=== PATIENT | female | born 1965 | race Two or more races ===

== ENCOUNTER 2023-03-05 00:16 | Inpatient (IN) | payer BC, OTHER ==
[~2023-03-05] VITALS: Ht 175.3 cm; Wt 100.0 kg
[2023-03-05 00:47] LABS: Basophils # (auto) 0 10 ^3/uL (0-0.2); Basophils % (auto) 0.5 % (0.0-2.0); Eosinophils # (auto) 0.1 10 ^3/uL (0-0.8); Eosinophils % (auto) 1.4 % (0.0-7.0); Hemoglobin 12.7 g/dL (12.2-16.2); Lymphocytes # (auto) 1.8 10 ^3/uL (0.4-5.4); Lymphocytes % (auto) 23.8 % (10.0-50.0); Mean Corpuscular Hgb Conc. 33.4 g/dL (32.0-36.0); Mean Corpuscular Volume 98.8 fL (80.0-100.0); Monocytes # (auto) 0.5 10 ^3/uL (0-1.3); Neutrophils # (auto) 5.3 10 ^3/uL (1.6-8.6); Neutrophils % (auto) 68.3 % (37.0-80.0); Red Blood Cells 3.84 10^6/uL (4.0-5.20); Red Cell Distribution Width 12.4 % (11.8-14.3); White Blood Cell 7.7 10^3/uL (4.4-10.8)
[2023-03-05 01:03] LABS: INR 0.97 (0.9-1.15); Partial Thromboplastin Time 25.6 SEC (24.5-34.5); Prothrombin Time 10.2 sec (9.3-11.8)
[2023-03-05 01:12] LABS: Alanine Aminotransferase 36 U/L (7-40); Albumin 4.6 g/dL (3.2-4.8); Alkaline Phosphatase 86 U/L (46-116); Anion Gap 11 (5-15); Aspartate Aminotransferase 31 U/L (13-40); BUN/Creatinine Ratio 17.1 (10.0-20.0); Bilirubin, Total 0.4 mg/dL (0.2-1.0); Blood Urea Nitrogen 14 mg/dL (9-23); Calcium 9.3 mg/dL (8.7-10.4); Carbon Dioxide 25 mmol/L (20-30); Chloride 101 mmol/L (98-107); Glucose 107 mg/dL (74-106); Potassium 3.7 mmol/L (3.5-5.1); Sodium 137 mmol/L (136-145); Total Protein 6.8 g/dL (5.7-8.2)
[2023-03-05] MEDS ORDERED: MORPHINE SULFATE 4 MG/ML SYR/VIAL IV ONE ×2 (01:30→02:45)
[2023-03-05] MEDS ORDERED: ONDANSETRON HCL 4 MG/2 ML VIAL IV ONE ×2 (01:30→02:45)
[2023-03-05 02:00] VITALS: PULSE 84; RESP 18; O2SAT 96
[2023-03-05] MEDS ORDERED: PROPOFOL 10 MG/ML 20 ML IV ONE (02:45)
[2023-03-05] MEDS ORDERED: MORPHINE SULFATE 4 MG/ML SYR/VIAL ONE (06:04)
[2023-03-05] MEDS ORDERED: ONDANSETRON HCL 4 MG/2 ML VIAL ONE (06:05)
[2023-03-05] MEDS ORDERED: DOCUSATE SOD 100 MG CAP PO PRN (07:15)
[2023-03-05] MEDS ORDERED: ACETAMINOPHEN 325 MG TAB PO PRN (07:15)
[2023-03-05] MEDS ORDERED: MORPHINE SULFATE INJ 2 MG/ml SYRG IV PRN (07:15)
[2023-03-05] MEDS ORDERED: DEXTROSE (50%) 50ML SYRG IV PRN (07:15)
[2023-03-05] MEDS ORDERED: NITROGLYCERIN 0.4 MG SL TAB SL PRN (07:15)
[2023-03-05] MEDS ORDERED: SODIUM CHLORIDE 0.9% 1,000 ML IV SCH (07:15)
[2023-03-05] MEDS ORDERED: LORazepam 2MG/ML-1ML VIAL IV ONE ×2 (07:15)
[2023-03-05 07:46] LABS: Basophils # (auto) 0 10 ^3/uL (0-0.2); Basophils % (auto) 0.3 % (0.0-2.0); Eosinophils # (auto) 0.1 10 ^3/uL (0-0.8); Eosinophils % (auto) 1.4 % (0.0-7.0); Hematocrit 36.3 % (36.0-46.0); Hemoglobin 12.1 g/dL (12.2-16.2); Lymphocytes # (auto) 2.1 10 ^3/uL (0.4-5.4); Lymphocytes % (auto) 25.2 % (10.0-50.0); Mean Corpuscular Hgb Conc. 33.4 g/dL (32.0-36.0); Mean Corpuscular Volume 98.9 fL (80.0-100.0); Monocytes # (auto) 0.5 10 ^3/uL (0-1.3); Monocytes % (auto) 6.1 % (0.0-12.0); Neutrophils # (auto) 5.5 10 ^3/uL (1.6-8.6); Red Blood Cells 3.67 10^6/uL (4.0-5.20); White Blood Cell 8.3 10^3/uL (4.4-10.8)
[2023-03-05] MEDS: MORPHINE SULFATE INJ 2 MG/ml SYRG IV PRN ×4 (07:53→21:12)
[2023-03-05] MEDS: ONDANSETRON HCL 4 MG/2 ML VIAL IV PRN ×4 (07:54→21:12)
[2023-03-05 08:07] LABS: Alanine Aminotransferase 37 U/L (7-40); Albumin 4.3 g/dL (3.2-4.8); Alkaline Phosphatase 83 U/L (46-116); Anion Gap 8 (5-15); Aspartate Aminotransferase 36 U/L (13-40); BUN/Creatinine Ratio 17.5 (10.0-20.0); Bilirubin, Total 0.7 mg/dL (0.2-1.0); Blood Urea Nitrogen 14 mg/dL (9-23); Carbon Dioxide 25 mmol/L (20-30); Chloride 103 mmol/L (98-107); Glucose 98 mg/dL (74-106); Potassium 4.2 mmol/L (3.5-5.1); Sodium 136 mmol/L (136-145); Total Protein 6.5 g/dL (5.7-8.2)
[2023-03-05] MEDS: InsuLIN REG 1unit/0.01ml Soln (100units/ml) SC SCH ×2 (12:00→17:15)
[2023-03-05] MEDS: ENOXAPARIN SOD 40 MG/0.4 ML SYRINGE SC SCH (12:14)
[2023-03-05] MEDS: ACCU-CHEK COMFORT CURVE STRIP VI SCH ×2 (12:15→17:15)
[2023-03-05] MEDS: HYDROcodone-ACET 5/325MG TAB PO PRN ×3 (13:42→22:51)
[2023-03-05] MEDS: LORazepam 0.5 MG TAB PO PRN ×2 (17:06→22:51)
[2023-03-05 19:30] VITALS: PULSE 99; RESP 24; O2SAT 94
[2023-03-05] MEDS: IBUPROFEN 800 MG TAB PO SCH (20:48)
[2023-03-05] MEDS: FUROSEMIDE 20 MG/2 ML VIAL IV SCH (21:11)
[2023-03-05 21:48] LABS: Urine Bacteria NONE SEEN /hpf (None Seen); Urine Blood 1+ /uL (Negative); Urine Clarity Clear (Clear); Urine Color Colorless (Yellow); Urine Protein, UAD Negative (Negative); Urine Specific Gravity 1.009 (1.001-1.035); Urine Urobilinogen Normal (Negative); Urine WBC 4 /hpf (0 - 5); Urine pH 6.5 (5.0-8.0)
[2023-03-06] VITALS (9 sets, daily range): BP systolic 118–149; BP diastolic 69–95; PULSE 95–109; RESP 16–20; TEMP 98–98.9; O2SAT 92–99
[2023-03-06] MEDS: ONDANSETRON HCL 4 MG/2 ML VIAL IV PRN ×2 (02:55→09:26)
[2023-03-06] MEDS: MORPHINE SULFATE INJ 2 MG/ml SYRG IV PRN ×2 (02:56→09:27)
[2023-03-06] MEDS: LORazepam 0.5 MG TAB PO PRN ×2 (05:33→20:16)
[2023-03-06 05:49] LABS: Basophils # (auto) 0 10 ^3/uL (0-0.2); Basophils % (auto) 0.4 % (0.0-2.0); Eosinophils # (auto) 0.1 10 ^3/uL (0-0.8); Eosinophils % (auto) 1.3 % (0.0-7.0); Hematocrit 35.4 % (36.0-46.0); Hemoglobin 12.1 g/dL (12.2-16.2); Lymphocytes # (auto) 1.5 10 ^3/uL (0.4-5.4); Lymphocytes % (auto) 25.4 % (10.0-50.0); Mean Corpuscular Hemoglobin 33.5 pg (28.0-32.0); Mean Corpuscular Hgb Conc. 34.1 g/dL (32.0-36.0); Mean Corpuscular Volume 98.1 fL (80.0-100.0); Monocytes # (auto) 0.5 10 ^3/uL (0-1.3); Monocytes % (auto) 7.5 % (0.0-12.0); Neutrophils % (auto) 65.4 % (37.0-80.0); Nucleated Red Blood Cells % 0.1 %; Red Blood Cells 3.61 10^6/uL (4.0-5.20); Red Cell Distribution Width 12.1 % (11.8-14.3); White Blood Cell 6.1 10^3/uL (4.4-10.8)
[2023-03-06] MEDS: FUROSEMIDE 20 MG/2 ML VIAL IV SCH ×2 (05:55→18:07)
[2023-03-06] MEDS: ACCU-CHEK COMFORT CURVE STRIP VI SCH ×4 (05:56→18:08)
[2023-03-06] MEDS: InsuLIN REG 1unit/0.01ml Soln (100units/ml) SC SCH ×4 (05:56→18:18)
[2023-03-06 05:59] LABS: Alanine Aminotransferase 30 U/L (7-40); Alkaline Phosphatase 87 U/L (46-116); Anion Gap 8 (5-15); BUN/Creatinine Ratio 9.6 (10.0-20.0); Blood Urea Nitrogen 7 mg/dL (9-23); Calcium 9.7 mg/dL (8.5-10.1); Carbon Dioxide 27 mmol/L (20-30); Chloride 102 mmol/L (98-107); Glucose 105 mg/dL (74-106); Potassium 3.8 mmol/L (3.5-5.1); Sodium 137 mmol/L (136-145)
[2023-03-06 06:00] LABS: Albumin 4.5 g/dL (3.2-4.8); Aspartate Aminotransferase 24 U/L (13-40); Total Protein 6.7 g/dL (5.7-8.2)
[2023-03-06] MEDS: IBUPROFEN 800 MG TAB PO SCH ×3 (08:00→18:00)
[2023-03-06] MEDS: ENOXAPARIN SOD 40 MG/0.4 ML SYRINGE SC SCH (08:25)
[2023-03-06] MEDS ORDERED: LIDOCAINE 1% HCL (LOCAL ANESTH.) INJ 20ML MDV ONE (10:28)
[2023-03-06] MEDS ORDERED: MORPHINE SULFATE INJ 2 MG/ml SYRG IV ONE (10:30)
[2023-03-06] MEDS ORDERED: BUPIVACAINE 0.5% P/F INJ 10 ML VIAL ONE ×2 (10:32→10:54)
[2023-03-06] MEDS ORDERED: ONDANSETRON HCL 4 MG/2 ML VIAL IV PRN ×2 (10:45→13:00)
[2023-03-06] MEDS ORDERED: HYDROmorphone HCL 2 MG/ML VL/or syr IV PRN (10:45)
[2023-03-06] MEDS ORDERED: MEPERIDINE HCL (25 MG/ML) 1ML VIAL IV PRN ×2 (10:45→13:00)
[2023-03-06] MEDS ORDERED: PROPOFOL 10 MG/ML 20 ML IV ONE (10:47)
[2023-03-06] MEDS ORDERED: fentaNYL CITRATE 100 MCG/2 ML VL ONE ×2 (10:47→11:30)
[2023-03-06] MEDS ORDERED: MEPERIDINE HCL (25 MG/ML) 1ML VIAL ONE ×2 (11:10→12:01)
[2023-03-06] MEDS ORDERED: ONDANSETRON HCL 4 MG/2 ML VIAL ONE (11:11)
[2023-03-06] MEDS ORDERED: DexAMETHasone SOD PHOS 10MG/1ML VIAL INJ ONE (11:11)
[2023-03-06] MEDS ORDERED: SODIUM CHLORIDE LOCK 10 ML ONE (12:01)
[2023-03-06] MEDS: HYDROmorphone HCL 2 MG/ML VL/or syr IV PRN ×4 (12:59→13:29)
[2023-03-06] MEDS ORDERED: LABETALOL HCL 5 MG/ML 4ML SYRINGE IV PRN (13:00)
[2023-03-06] MEDS: ceFAZolin 1GM/50ML 50 ML IV SCH ×2 (14:50→21:20)
[2023-03-06] MEDS: HYDROcodone-ACET 5/325MG TAB PO PRN ×2 (15:01→20:16)
[2023-03-06] MEDS: MORPHINE SULFATE 4 MG/ML SYR/VIAL IV PRN (18:08)
[2023-03-06] MEDS: ALPRAZolam 0.25 MG TAB PO SCH (22:35)
[2023-03-07] VITALS (7 sets, daily range): BP systolic 115–161; BP diastolic 62–88; PULSE 86–97; RESP 16–18; TEMP 97.4–98.4; O2SAT 91–96
[2023-03-07] MEDS: ACCU-CHEK COMFORT CURVE STRIP VI SCH ×5 (00:01→23:45)
[2023-03-07] MEDS: HYDROcodone-ACET 5/325MG TAB PO PRN ×5 (00:01→21:03)
[2023-03-07] MEDS: InsuLIN REG 1unit/0.01ml Soln (100units/ml) SC SCH ×4 (00:02→18:30)
[2023-03-07] MEDS: LORazepam 0.5 MG TAB PO PRN ×3 (03:07→16:43)
[2023-03-07] MEDS: ceFAZolin 1GM/50ML 50 ML IV SCH (05:53)
[2023-03-07] MEDS: FUROSEMIDE 20 MG/2 ML VIAL IV SCH ×2 (05:53→18:19)
[2023-03-07] MEDS: ENOXAPARIN SOD 40 MG/0.4 ML SYRINGE SC SCH (09:41)
[2023-03-07] MEDS: CITALOPRAM HYDROBR 20 MG TAB PO SCH (09:41)
[2023-03-07] MEDS: IBUPROFEN 800 MG TAB PO SCH ×2 (12:00→18:19)
[2023-03-07] MEDS: MORPHINE SULFATE 4 MG/ML SYR/VIAL IV PRN ×3 (13:34→22:57)
[2023-03-07] MEDS: ALPRAZolam 0.25 MG TAB PO SCH (21:03)
[2023-03-08] VITALS (8 sets, daily range): BP systolic 101–134; BP diastolic 59–78; PULSE 84–118; RESP 18; TEMP 97.5–98.3; O2SAT 92–97
[2023-03-08] MEDS: InsuLIN REG 1unit/0.01ml Soln (100units/ml) SC SCH ×4 (06:00→17:57)
[2023-03-08] MEDS: HYDROcodone-ACET 5/325MG TAB PO PRN ×3 (06:06→17:43)
[2023-03-08] MEDS: FUROSEMIDE 20 MG/2 ML VIAL IV SCH ×2 (06:07→17:44)
[2023-03-08] MEDS: ACCU-CHEK COMFORT CURVE STRIP VI SCH ×3 (06:13→17:44)
[2023-03-08] MEDS: IBUPROFEN 800 MG TAB PO SCH ×4 (08:00→17:44)
[2023-03-08] MEDS: ENOXAPARIN SOD 40 MG/0.4 ML SYRINGE SC SCH (10:11)
[2023-03-08] MEDS: CITALOPRAM HYDROBR 20 MG TAB PO SCH (10:11)
[2023-03-08] MEDS: MORPHINE SULFATE 4 MG/ML SYR/VIAL IV PRN ×2 (13:00→21:57)
[2023-03-08] MEDS: LORazepam 0.5 MG TAB PO PRN (13:01)
[2023-03-08] MEDS: ALPRAZolam 0.25 MG TAB PO SCH (21:56)
[2023-03-09 05:00] VITALS: BP 119/60; PULSE 92; RESP 18; TEMP 97.5; O2SAT 93
[2023-03-09] MEDS: InsuLIN REG 1unit/0.01ml Soln (100units/ml) SC SCH ×3 (06:00→12:00)
[2023-03-09] MEDS: MORPHINE SULFATE 4 MG/ML SYR/VIAL IV PRN ×2 (06:25→10:52)
[2023-03-09] MEDS: FUROSEMIDE 20 MG/2 ML VIAL IV SCH (06:25)
[2023-03-09] MEDS: ACCU-CHEK COMFORT CURVE STRIP VI SCH ×3 (06:33→12:00)
[2023-03-09 07:30] VITALS: PULSE 71; RESP 18; O2SAT 94
[2023-03-09 08:30] VITALS: PULSE 77
[2023-03-09 09:00] VITALS: BP 110/62; PULSE 71; RESP 20; TEMP 98.5; O2SAT 92
[2023-03-09] MEDS ORDERED: HYDR-4902 PO (09:42)
[2023-03-09] MEDS ORDERED: IBUP-1455 PO (09:42)
[2023-03-09] MEDS: CITALOPRAM HYDROBR 20 MG TAB PO SCH (09:48)
[2023-03-09] MEDS: IBUPROFEN 800 MG TAB PO SCH ×2 (09:49→14:57)
[2023-03-09] MEDS: ENOXAPARIN SOD 40 MG/0.4 ML SYRINGE SC SCH (09:50)
[2023-03-09] MEDS: LORazepam 0.5 MG TAB PO PRN (09:58)
[2023-03-09 13:00] VITALS: BP 148/86; PULSE 96; RESP 20; TEMP 97.3; O2SAT 95
[2023-03-09 15:01] VITALS: BP 119/60; PULSE 96; RESP 19; TEMP 36.3; O2SAT 95
[2023-03-09] MEDS: HYDROcodone-ACET 5/325MG TAB PO PRN (15:32)
== END 2023-03-09 16:15 | disposition home or self-care (01) | DRG 492 ==
LOC: EDBD 00:16 → ER 00:16 → TELE 07:18 → TELE-WESTW 23:33
PROVIDERS: ADMIT Nurse Practitioner Family; ATTEND Internal Medicine Geriatric Medicine
PROC: 0QSJ04Z Reposition Right Fibula with Internal Fixation Device, Open Approach (ICD-10-PCS; 2023-03-06)
PROC: 0SSF04Z Reposition Right Ankle Joint with Internal Fixation Device, Open Approach (ICD-10-PCS; 2023-03-06)
PROC: 0QSG04Z Reposition Right Tibia with Internal Fixation Device, Open Approach (ICD-10-PCS; principal; 2023-03-06 11:03)
DX: S82.851A Displaced trimalleolar fracture of right lower leg, initial encounter for closed fracture (principal); J96.90 Respiratory failure, unspecified, unspecified whether with hypoxia or hypercapnia; W01.0XXA Fall on same level from slipping, tripping and stumbling without subsequent striking against object, initial encounter; E11.9 Type 2 diabetes mellitus without complications; F41.9 Anxiety disorder, unspecified; E78.00 Pure hypercholesterolemia, unspecified; F32.A Depression, unspecified; I50.9 Heart failure, unspecified; I11.0 Hypertensive heart disease with heart failure; Z79.899 Other long term (current) drug therapy; Z80.0 Family history of malignant neoplasm of digestive organs; Y93.89 Activity, other specified; Y92.89 Other specified places as the place of occurrence of the external cause; Y99.8 Other external cause status
CPT/HCPCS: 36415; 71045; 73600; 76000; 80053; 81001; 82962; 83036; 85025; 85610; 85730; 86850; 86900; 86901; 87081; 93306; 97110; 97116; 97163; 97530; G0378; J0690; J1100; J1815; J2001; J2405; J2704; J3490

== ENCOUNTER 2023-09-08 09:48 | Inpatient (IN) | payer BC ==
[~2023-09-08] VITALS: Ht 172.7 cm; Wt 97.0 kg
[~2023-09-08 09:48] MED LIST: HYDR-4902 PO; IBUP-1455 PO
[2023-09-08] MEDS: PIPERACILLIN-TAZOB 3.375GM 100 ML IV ONE (11:45)
[2023-09-08 11:59] LABS: Basophils # (auto) 0 10 ^3/uL (0-0.2); Basophils % (auto) 0.7 % (0.0-2.0); Eosinophils # (auto) 0.2 10 ^3/uL (0-0.8); Eosinophils % (auto) 2.5 % (0.0-7.0); Hematocrit 34.7 % (36.0-46.0); Hemoglobin 11.7 g/dL (12.2-16.2); Lymphocytes # (auto) 2.1 10 ^3/uL (0.4-5.4); Lymphocytes % (auto) 33.5 % (10.0-50.0); Mean Corpuscular Hemoglobin 31.9 pg (28.0-32.0); Mean Corpuscular Hgb Conc. 33.7 g/dL (32.0-36.0); Mean Corpuscular Volume 94.5 fL (80.0-100.0); Monocytes # (auto) 0.4 10 ^3/uL (0-1.3); Monocytes % (auto) 5.9 % (0.0-12.0); Neutrophils # (auto) 3.6 10 ^3/uL (1.6-8.6); Neutrophils % (auto) 57.4 % (37.0-80.0); Red Blood Cells 3.68 10^6/uL (4.0-5.20); Red Cell Distribution Width 13.7 % (11.8-14.3); White Blood Cell 6.2 10^3/uL (4.4-10.8)
[2023-09-08 12:18] LABS: Alanine Aminotransferase 16 U/L (7-40); Albumin 4.6 g/dL (3.2-4.8); Alkaline Phosphatase 125 U/L (46-116); Anion Gap 2 (5-15); Aspartate Aminotransferase 10 U/L (13-40); BUN/Creatinine Ratio 26.7 (10.0-20.0); Blood Urea Nitrogen 20 mg/dL (9-23); Calcium 9.9 mg/dL (8.5-10.1); Carbon Dioxide 29 mmol/L (20-30); Chloride 109 mmol/L (98-107); Glucose 95 mg/dL (74-106); Potassium 4.1 mmol/L (3.5-5.1); Sodium 140 mmol/L (136-145)
[2023-09-08 12:19] LABS: Bilirubin, Total 0.5 mg/dL (0.2-1.0); Total Protein 7.4 g/dL (5.7-8.2)
[2023-09-08] MEDS ORDERED: VANCOMYCIN PER PHARMACY 0 MG IV SCH (12:30)
[2023-09-08] MEDS ORDERED: DOCUSATE SOD 100 MG CAP PO PRN (12:30)
[2023-09-08] MEDS ORDERED: ONDANSETRON HCL 4 MG/2 ML VIAL IV PRN (12:30)
[2023-09-08 12:32] LABS: Erythrocyte Sedimentation Rate 43 mm/hr (0-20)
[2023-09-08] MEDS: ENOXAPARIN SOD 40 MG/0.4 ML SYRINGE SC SCH (13:54)
[2023-09-08] MEDS: VANCOMYCIN 1GM/200ML 200 ML IV ONE (13:55)
[2023-09-08 15:00] VITALS: BP 178/116; PULSE 94; RESP 16; TEMP 98; O2SAT 99
[2023-09-08 16:00] VITALS: BP 189/97; PULSE 94; RESP 16; TEMP 98; O2SAT 99
[2023-09-08] MEDS ORDERED: ESCI20TA PO (16:31)
[2023-09-08 16:34] LABS: Urine Bacteria FEW /hpf (None Seen); Urine Blood Negative /uL (Negative); Urine Clarity Clear (Clear); Urine Color Light-Yellow (Yellow); Urine Hyaline Cast FEW /lpf (0 - 2); Urine Protein, UAD Negative (Negative); Urine Specific Gravity 1.023 (1.001-1.035); Urine Urobilinogen Normal (Negative); Urine WBC 2 /hpf (0 - 5); Urine pH 5.5 (5.0-9.0)
[2023-09-08] MEDS: SODIUM CHLORIDE 0.9% 1,000 ML IV SCH (16:48)
[2023-09-08 17:00] VITALS: BP 175/102; PULSE 90; RESP 18; TEMP 98; O2SAT 99
[2023-09-08] MEDS ORDERED: ATOR40TA52 PO (17:01)
[2023-09-08] MEDS ORDERED: LISI20TA56 PO (17:01)
[2023-09-08] MEDS ORDERED: ESCI1TAB37 PO (17:01)
[2023-09-08] MEDS ORDERED: METF-370 PO (17:01)
[2023-09-08] MEDS ORDERED: CYCL-839 PO (17:01)
[2023-09-08] MEDS ORDERED: FURO1TAB31 PO (17:01)
[2023-09-08] MEDS ORDERED: POTA-36 PO (17:01)
[2023-09-08] MEDS: PIPERACILLIN-TAZOB 3.375GM 100 ML IV SCH (17:42)
[2023-09-08] MEDS: MORPHINE SULFATE INJ 2 MG/ml SYRG IV PRN (17:43)
[2023-09-08] MEDS: LISINOPRIL 20 MG TAB PO ONE (18:05)
[2023-09-08 19:11] LABS: Hepatitis C Antibody Negative (Negative)
[2023-09-08 20:00] VITALS: PULSE 88; RESP 20; O2SAT 97
[2023-09-08 21:00] VITALS: BP 165/93; PULSE 88; RESP 20; TEMP 97.8; O2SAT 97
[2023-09-09] MEDS: VANCOMYCIN 1GM/200ML 200 ML IV SCH (02:02)
[2023-09-09 05:00] VITALS: BP 141/85; PULSE 78; TEMP 98.1; O2SAT 95
[2023-09-09 06:49] LABS: Alanine Aminotransferase 12 U/L (7-40); Albumin 3.8 g/dL (3.2-4.8); Alkaline Phosphatase 99 U/L (46-116); Anion Gap 9 (5-15); Aspartate Aminotransferase 10 U/L (13-40); BUN/Creatinine Ratio 20.3 (10.0-20.0); Bilirubin, Total 0.7 mg/dL (0.2-1.0); Blood Urea Nitrogen 12 mg/dL (9-23); Calcium 9.7 mg/dL (8.7-10.4); Carbon Dioxide 24 mmol/L (20-30); Chloride 108 mmol/L (98-107); Glucose 100 mg/dL (74-106); Sodium 141 mmol/L (136-145); Total Protein 6.3 g/dL (5.7-8.2)
[2023-09-09 08:07] LABS: Basophils # (auto) 0 10 ^3/uL (0-0.2); Basophils % (auto) 0.7 % (0.0-2.0); Eosinophils # (auto) 0.2 10 ^3/uL (0-0.8); Eosinophils % (auto) 3.3 % (0.0-7.0); Hematocrit 31.3 % (36.0-46.0); Hemoglobin 10.5 g/dL (12.2-16.2); Lymphocytes # (auto) 1.4 10 ^3/uL (0.4-5.4); Lymphocytes % (auto) 27.2 % (10.0-50.0); Mean Corpuscular Hemoglobin 31.7 pg (28.0-32.0); Mean Corpuscular Hgb Conc. 33.7 g/dL (32.0-36.0); Mean Corpuscular Volume 94.2 fL (80.0-100.0); Monocytes # (auto) 0.4 10 ^3/uL (0-1.3); Monocytes % (auto) 6.9 % (0.0-12.0); Neutrophils # (auto) 3.2 10 ^3/uL (1.6-8.6); Neutrophils % (auto) 61.9 % (37.0-80.0); Red Blood Cells 3.33 10^6/uL (4.0-5.20); Red Cell Distribution Width 13.7 % (11.8-14.3); White Blood Cell 5.1 10^3/uL (4.4-10.8)
[2023-09-09 08:17] VITALS: BP 136/88; PULSE 83; RESP 19; TEMP 98; O2SAT 96
[2023-09-09] MEDS: LISINOPRIL 20 MG TAB PO SCH (08:47)
[2023-09-09 11:50] VITALS: BP 143/86; PULSE 78; RESP 19; TEMP 97.6; O2SAT 95
[2023-09-09] MEDS: NICOTINE 14 MG/24HR TOPICAL PATCH TD SCH (16:44)
[2023-09-09 17:03] VITALS: BP 153/93; PULSE 77; RESP 19; TEMP 97.7; O2SAT 97
[2023-09-09 20:00] VITALS: RESP 20; O2SAT 97
[2023-09-09 21:00] VITALS: BP 144/89; PULSE 83; RESP 20; TEMP 97.7; O2SAT 96
[2023-09-10 00:51] VITALS: BP 144/96; PULSE 98; RESP 20; TEMP 98; O2SAT 95
[2023-09-10 05:00] VITALS: BP 124/71; PULSE 75; RESP 20; TEMP 98; O2SAT 98
[2023-09-10 06:08] LABS: Basophils # (auto) 0 10 ^3/uL (0-0.2); Basophils % (auto) 0.6 % (0.0-2.0); Eosinophils # (auto) 0.2 10 ^3/uL (0-0.8); Eosinophils % (auto) 4.5 % (0.0-7.0); Hematocrit 32.3 % (36.0-46.0); Lymphocytes # (auto) 1.8 10 ^3/uL (0.4-5.4); Lymphocytes % (auto) 34.3 % (10.0-50.0); Mean Corpuscular Hemoglobin 32.2 pg (28.0-32.0); Mean Corpuscular Volume 94.7 fL (80.0-100.0); Monocytes # (auto) 0.4 10 ^3/uL (0-1.3); Monocytes % (auto) 7.6 % (0.0-12.0); Neutrophils # (auto) 2.7 10 ^3/uL (1.6-8.6); Red Blood Cells 3.41 10^6/uL (4.0-5.20); Red Cell Distribution Width 13.5 % (11.8-14.3); White Blood Cell 5.1 10^3/uL (4.4-10.8)
[2023-09-10 06:13] LABS: Potassium 4.4 mmol/L (3.5-5.1)
[2023-09-10 06:14] LABS: Calcium 9.6 mg/dL (8.5-10.1)
[2023-09-10 06:19] LABS: BUN/Creatinine Ratio 12.3 (10.0-20.0)
[2023-09-10 06:20] LABS: Albumin 4.1 g/dL (3.2-4.8)
[2023-09-10 06:21] LABS: Phosphorus 4.1 mg/dL (2.4-5.1)
[2023-09-10 08:25] VITALS: BP 131/87; PULSE 84; RESP 18; TEMP 97.7; O2SAT 90
[2023-09-10 12:25] VITALS: BP 153/96; PULSE 74; RESP 16; TEMP 98.8; O2SAT 98
[2023-09-10 16:32] VITALS: BP 146/94; PULSE 98; RESP 15; TEMP 98; O2SAT 94
[2023-09-10] MEDS: ATORVASTATIN 20 MG TAB PO SCH (21:38)
[2023-09-10 22:00] VITALS: BP 150/84; PULSE 88; RESP 18; TEMP 97.7; O2SAT 100
[2023-09-10] MEDS: ZOLPIDEM TARTRATE 5 MG TAB PO ONE (22:21)
[2023-09-11] VITALS (8 sets, daily range): BP systolic 119–153; BP diastolic 66–94; PULSE 70–112; RESP 18–20; TEMP 97.9–98.7; O2SAT 93–100
[2023-09-11] MEDS: FUROSEMIDE 40 MG TAB PO SCH (08:51)
[2023-09-11 09:00] LABS: Hepatitis B Surface Antigen Negative (Negative)
[2023-09-11 09:21] LABS: Hepatitis A Ab IgM Negative; Hepatitis B Core IgM Negative
[2023-09-11 10:37] LABS: INR 1.01 (0.9-1.15); Partial Thromboplastin Time 25.1 SEC (24.5-34.5); Prothrombin Time 10.7 sec (9.3-11.8)
[2023-09-11] MEDS: TOBRAMYCIN PER PHARMACY 0 ML IV ONE (12:15)
[2023-09-11] MEDS: TOBRAMYCIN IV ONE (12:30)
[2023-09-11] MEDS: D5W 5% IV ONE (12:30)
[2023-09-11] MEDS ORDERED: MIDAZOLAM HCL 2MG/2ML 2ml VIAL (1mg/ml) ONE (14:19)
[2023-09-11] MEDS ORDERED: fentaNYL CITRATE 100 MCG/2 ML VL ONE (14:19)
[2023-09-11] MEDS ORDERED: MEPERIDINE HCL (25 MG/ML) 1ML VIAL ONE (14:20)
[2023-09-11] MEDS: VANCOMYCIN HCL 1000 MG VL ONE (14:24)
[2023-09-11] MEDS ORDERED: LABETALOL HCL 5 MG/ML 4ML SYRINGE IV PRN (14:45)
[2023-09-11] MEDS: ONDANSETRON HCL 4 MG/2 ML VIAL IV ONE (14:45)
[2023-09-11] MEDS ORDERED: MIDAZOLAM HCL 2MG/2ML 2ml VIAL (1mg/ml) IV PRN (14:45)
[2023-09-11] MEDS: ACCU-CHEK COMFORT CURVE STRIP VI ONE (14:45)
[2023-09-11] MEDS ORDERED: ePHEDrine SULFATE 50 MG/ML AMP IV PRN (14:45)
[2023-09-11] MEDS ORDERED: DexAMETHasone SOD PHOS 10MG/1ML VIAL INJ ONE (14:56)
[2023-09-11] MEDS ORDERED: PROPOFOL 10 MG/ML 20 ML IV ONE (14:56)
[2023-09-11] MEDS: HYDROmorphone HCL 2 MG/ML VL/or syr IV PRN (15:42)
[2023-09-11] MEDS: MORPHINE SULFATE INJ 2 MG/ml SYRG ONE (16:24)
[2023-09-11] MEDS: MORPHINE SULFATE 4 MG/ML SYR/VIAL IV PRN (16:27)
[2023-09-11] MEDS ORDERED: HYDR-4072 PO (19:23)
[2023-09-11] MEDS: HYDROcodone-ACET 7.5/325MG TAB PO PRN (20:59)
[2023-09-11] MEDS: TEMAZEPAM 15 MG CAP PO ONE (21:50)
[2023-09-12 05:00] VITALS: BP 120/73; PULSE 83; RESP 18; TEMP 97.6; O2SAT 95
[2023-09-12 08:49] VITALS: BP 148/91; PULSE 83; RESP 18; TEMP 97.8; O2SAT 96
[2023-09-12 12:40] VITALS: BP 157/94; PULSE 87; RESP 19; TEMP 98; O2SAT 96
[2023-09-12] MEDS: CITALOPRAM HYDROBR 20 MG TAB PO SCH (14:00)
[2023-09-12 16:36] VITALS: BP 153/96; PULSE 87; RESP 16; TEMP 97.5; O2SAT 98
[2023-09-12 20:00] VITALS: PULSE 86; RESP 18; O2SAT 93
[2023-09-12 21:00] VITALS: BP 115/66; PULSE 86; RESP 18; TEMP 97.8; O2SAT 93
[2023-09-12] MEDS: TEMAZEPAM 15 MG CAP PO ONE (21:45)
[2023-09-13] VITALS (8 sets, daily range): BP systolic 125–151; BP diastolic 73–94; PULSE 71–88; RESP 16–20; TEMP 97.6–99.1; O2SAT 94–97
[2023-09-13 08:22] LABS: Basophils # (auto) 0.1 10 ^3/uL (0-0.2); Basophils % (auto) 1.1 % (0.0-2.0); Eosinophils # (auto) 0.1 10 ^3/uL (0-0.8); Hematocrit 31.2 % (36.0-46.0); Hemoglobin 10.4 g/dL (12.2-16.2); Lymphocytes # (auto) 2.2 10 ^3/uL (0.4-5.4); Lymphocytes % (auto) 36.4 % (10.0-50.0); Mean Corpuscular Hemoglobin 31.8 pg (28.0-32.0); Mean Corpuscular Hgb Conc. 33.5 g/dL (32.0-36.0); Mean Corpuscular Volume 94.9 fL (80.0-100.0); Monocytes # (auto) 0.4 10 ^3/uL (0-1.3); Neutrophils # (auto) 3.2 10 ^3/uL (1.6-8.6); Neutrophils % (auto) 54.5 % (37.0-80.0); Nucleated Red Blood Cells % 0.1 %; Red Blood Cells 3.28 10^6/uL (4.0-5.20); Red Cell Distribution Width 13.9 % (11.8-14.3)
[2023-09-13] MEDS: ZOLPIDEM TARTRATE 5 MG TAB PO PRN (21:12)
[2023-09-14] VITALS (7 sets, daily range): BP systolic 123–155; BP diastolic 78–103; PULSE 82–90; RESP 16–20; TEMP 98.3–99.2; O2SAT 92–97
[2023-09-14 07:45] LABS: Basophils # (auto) 0 10 ^3/uL (0-0.2); Basophils % (auto) 0.6 % (0.0-2.0); Eosinophils # (auto) 0.2 10 ^3/uL (0-0.8); Eosinophils % (auto) 3.9 % (0.0-7.0); Hematocrit 30.9 % (36.0-46.0); Hemoglobin 10.5 g/dL (12.2-16.2); Lymphocytes # (auto) 1.4 10 ^3/uL (0.4-5.4); Lymphocytes % (auto) 24.8 % (10.0-50.0); Mean Corpuscular Hemoglobin 32.1 pg (28.0-32.0); Mean Corpuscular Volume 94.6 fL (80.0-100.0); Monocytes # (auto) 0.6 10 ^3/uL (0-1.3); Monocytes % (auto) 9.9 % (0.0-12.0); Neutrophils # (auto) 3.4 10 ^3/uL (1.6-8.6); Neutrophils % (auto) 60.8 % (37.0-80.0); Nucleated Red Blood Cells % 0.1 %; Red Blood Cells 3.27 10^6/uL (4.0-5.20); Red Cell Distribution Width 13.7 % (11.8-14.3); White Blood Cell 5.6 10^3/uL (4.4-10.8)
[2023-09-14] MEDS: ceFAZolin 2 GM/D5W50ml 50 ML IV SCH (16:15)
[2023-09-15 05:00] VITALS: BP 132/78; PULSE 85; RESP 20; TEMP 99.8; O2SAT 92
[2023-09-15 08:00] VITALS: PULSE 84; RESP 20; O2SAT 94
[2023-09-15 09:00] VITALS: BP 159/94; PULSE 84; RESP 20; TEMP 98.3; O2SAT 94
[2023-09-15 13:00] VITALS: BP 132/92; PULSE 83; RESP 18; TEMP 98.2; O2SAT 96
[2023-09-15] MEDS ORDERED: LEVO750T40 PO (14:42)
[2023-09-15] MEDS ORDERED: CYCL-838 PO (14:52)
[2023-09-15] MEDS ORDERED: NAP500T PO (14:52)
[2023-09-15 16:49] VITALS: BP 159/94; PULSE 82; RESP 18; TEMP 36.8; O2SAT 96
[2023-09-15 17:00] VITALS: BP 139/87; PULSE 85; RESP 20; TEMP 97.6; O2SAT 94
== END 2023-09-15 17:25 | disposition home health service (06) | DRG 863 ==
LOC: ER 09:48 → WEST WING 13:08 → OVERFLOW 13:08 → WEST WING 15:40
PROVIDERS: ADMIT Internal Medicine; ATTEND Internal Medicine
PROC: 0YP90YZ Removal of Other Device from Right Lower Extremity, Open Approach (ICD-10-PCS; principal; 2023-09-11 14:24)
DX: T81.41XA Infection following a procedure, superficial incisional surgical site, initial encounter (principal); L02.415 Cutaneous abscess of right lower limb; L03.115 Cellulitis of right lower limb; E11.9 Type 2 diabetes mellitus without complications; I10 Essential (primary) hypertension; D64.9 Anemia, unspecified; M13.871 Other specified arthritis, right ankle and foot; Z80.3 Family history of malignant neoplasm of breast; Z80.51 Family history of malignant neoplasm of kidney; Z80.1 Family history of malignant neoplasm of trachea, bronchus and lung; Z80.0 Family history of malignant neoplasm of digestive organs; Z82.49 Family history of ischemic heart disease and other diseases of the circulatory system; Z79.899 Other long term (current) drug therapy
CPT/HCPCS: 36415; 71045; 73600; 73700; 76000; 80053; 80069; 80074; 80202; 81001; 82565; 83605; 83880; 84484; 85025; 85379; 85610; 85652; 85730; 86850; 86900; 86901; 87040; 87070; 87075; 87077; 87186; 87205; 93971; G0378; J1100; J2250; J2543; J2704; J7060